=== PATIENT | male | born 1960 | race African-American/Black ===

== ENCOUNTER 2023-08-12 15:13 | Emergency (ER) | payer MEDICAID ==
[~2023-08-12] VITALS: Ht 177.8 cm; Wt 69.0 kg
[2023-08-12 15:15] VITALS: BP 112/78; O2SAT 97
[2023-08-12 21:05] LABS: HEMATOCRIT. 33.7 % (42.0-52.0); HEMOGLOBIN. 11.1 g/dL (14.0-18.0); MEAN CORPUSCULAR HEMOGLOBIN 27.4 pg (28.0-32.0); MEAN CORPUSCULAR HGB CONC 32.8 g/dL (31.0-37.0); MEAN CORPUSCULAR VOLUME 83.5 fL (80.0-94.0); MEAN PLATELET VOLUME 10.5 fl (7.4-10.4); PLATELET 322 x1000/uL (130-400); RED BLOOD CELL COUNT 4.04 mill/uL (4.7-6.1); RED CELL DISTRIBUTION WIDTH 14.5 % (11.6-14.6); WHITE BLOOD COUNT 12.6 x1000/uL (4.5-11.0)
[2023-08-12 21:11] LABS: DIFFERENTIAL COMMENT 1
[2023-08-12 21:31] LABS: ALANINE AMINOTRANSFERASE 191 IU/L (10-49); ALBUMIN 3.8 g/dL (3.2-4.8); ASPARTATE AMINOTRANSFERASE 147 IU/L (<34); BILIRUBIN TOTAL 1.4 mg/dL (0.1-1.0); CALCIUM 9.5 mg/dL (8.7-10.4); CARBON DIOXIDE 22 mEq/L (21-32); CHLORIDE 100 mEq/L (98-107); CREATININE 1.2 mg/dL (0.6-1.3); GLUCOSE 104 mg/dL (70-105); POTASSIUM 3.9 mEq/L (3.5-5.1); PROTEIN TOTAL 7.3 g/dL (6.0-8.3); SODIUM 133 mEq/L (136-145); UREA NITROGEN BLOOD 21 mg/dL (9-23)
[2023-08-12 21:36] LABS: PLATELET ESTIMATE NORMAL
[2023-08-13 02:00] VITALS: PULSE 95; RESP 18
[2023-08-13 03:00] VITALS: TEMP 98.4
[2023-08-13] MEDS ORDERED: MED4 MT (03:00)
[2023-08-13] MEDS ORDERED: ACETAMINOPHEN 325MG TABLET PO ONE (03:00)
[2023-08-13] MEDS ORDERED: T3 PO (03:00)
== END 2023-08-13 04:25 | disposition home or self-care (01) ==
LOC: ER 15:13
DX: M70.52 Other bursitis of knee, left knee (principal); M70.51 Other bursitis of knee, right knee; Y93.89 Activity, other specified
CPT/HCPCS: 80053; 85025; 36415; 73562; 99284; Z7610 ×2